=== PATIENT | female | born 1985 | race African-American/Black ===

== ENCOUNTER 2019-03-29 07:59 | Day surgery (SDC) | payer OTHER ==
[~2019-03-29] VITALS: Ht 165.1 cm; Wt 66.2 kg
[~2019-03-29 07:59] MED LIST: CEFAZOLIN SOD 1 GM/ ISO 50 ML PREMIX IV ONE
[2019-03-29] MEDS ORDERED: fentaNYL CITRATE/PF 100 MCG/2 ML AMP IVP PRN ×2 (08:15)
[2019-03-29] MEDS ORDERED: ONDANSETRON HCL 4 MG/2 ML VIAL IVP PRN ×2 (08:15→10:30)
[2019-03-29] MEDS ORDERED: KETOROLAC TROMETHAMINE 30 MG VIAL IVP PRN (08:15)
[2019-03-29] MEDS ORDERED: ONDANSETRON HCL 4 MG/2 ML VIAL ONE (10:10)
[2019-03-29] MEDS ORDERED: fentaNYL CITRATE/PF 100 MCG/2 ML AMP ONE (10:10)
[2019-03-29] MEDS ORDERED: NS IRRIG SOLN 1000 ML IR ONE (10:10)
[2019-03-29] MEDS ORDERED: PROPOFOL 200MG/ 20ML VIAL (DIPRIVAN) IV ONE (10:10)
[2019-03-29] MEDS ORDERED: SEVOFLURANE 15 MIN GAS INH ONE (10:10)
[2019-03-29] MEDS ORDERED: KETOROLAC TROMETHAMINE 30 MG VIAL ONE (10:10)
[2019-03-29] MEDS ORDERED: BUPIVACAINE /EPINEPHRINE/PF 0.25% 30 ML VIAL INJ ONE (10:10)
[2019-03-29] MEDS ORDERED: MIDAZOLAM HCL 5 MG/ML VIAL (VERSED) IV ONE (10:10)
[2019-03-29] MEDS ORDERED: BACITRACIN 1 GM OINT TP ONE (10:10)
[2019-03-29] MEDS ORDERED: LR 1,000 ML IV.SOLN IV ONE (10:10)
[2019-03-29] MEDS ORDERED: OXYCODONE/ACETAMINOPHEN 5-325 TABLET PO PRN (10:30)
[2019-03-29] MEDS ORDERED: HYDROcodone/ACETAMIN 5-325 MG TAB (NORCO/ VICODIN) PO PRN (10:30)
[2019-03-29 12:14] VITALS: BP_SYST 104
== END 2019-03-29 12:05 | disposition home or self-care (01) ==
LOC: SDS 07:59 → STU 08:00 → SDS 12:05
PROVIDERS: ATTEND Specialist
DX: N89.8 Other specified noninflammatory disorders of vagina (principal); N94.10 Unspecified dyspareunia; G89.29 Other chronic pain; Z98.890 Other specified postprocedural states; Z79.899 Other long term (current) drug therapy
CPT/HCPCS: 56700; 88304; J0690; J1885; J2250; J2405; J2704; J3010; J3490; J7120; G0378

== ENCOUNTER 2023-05-05 06:12 | Inpatient (IN) | payer OTHER ==
[~2023-05-05] VITALS: Ht 165.1 cm; Wt 72.6 kg
[2023-05-05] MEDS ORDERED: ONDANSETRON HCL 4 MG/2 ML VIAL ONE (07:30)
[2023-05-05] MEDS ORDERED: LIDOCAINE 2%, 20 ML MDV ONE (07:30)
[2023-05-05] MEDS ORDERED: SUGAMMADEX SODIUM 200 MG/2 ML VIAL IV ONE (07:30)
[2023-05-05] MEDS ORDERED: METOPROLOL TARTRATE 5 MG/5 ML VIAL ONE (07:30)
[2023-05-05] MEDS ORDERED: PROPOFOL 200MG/ 20ML VIAL (DIPRIVAN) IV ONE (07:30)
[2023-05-05] MEDS ORDERED: NORMAL SALINE 10 ML VIAL ONE (07:30)
[2023-05-05] MEDS ORDERED: NS IRRIG SOLN 1000 ML IR ONE (07:30)
[2023-05-05] MEDS ORDERED: KETOROLAC TROMETHAMINE 30 MG VIAL ONE (07:30)
[2023-05-05] MEDS ORDERED: MIDAZOLAM HCL 2 MG/2 ML VIAL (VERSED) ONE (07:30)
[2023-05-05] MEDS ORDERED: ROCURONIUM BROMIDE 10 MG/ML (ZEMURON) ONE (07:30)
[2023-05-05] MEDS ORDERED: LR 1,000 ML IV.SOLN IV ONE (07:30)
[2023-05-05] MEDS ORDERED: DESFLURANE 15 MIN GAS INH ONE (07:30)
[2023-05-05] MEDS ORDERED: BUPIVACAINE /PF 0.25% 30 ML VIAL INJ ONE (07:30)
[2023-05-05] MEDS ORDERED: MORPHINE SULFATE 10MG/10ML PF AMP ONE (07:30)
[2023-05-05] MEDS ORDERED: DEXAMETHASONE SOD PHOSPHATE 4 MG/ML VIAL ONE (07:30)
[2023-05-05] MEDS ORDERED: ceFAZolin SODIUM 2 GM VIAL ONE ×2 (07:30→13:11)
[2023-05-05] MEDS ORDERED: BUPIVACAINE /DEX PF 0.75% SPINAL 2 ML AMP INJ ONE (07:30)
[2023-05-05] MEDS ORDERED: ACETAMINOPHEN I.V. 1000 MG 100 ML IV ONE (08:13)
[2023-05-05] MEDS ORDERED: ONDANSETRON HCL 4 MG/2 ML VIAL IVP PRN ×2 (08:30→09:45)
[2023-05-05] MEDS ORDERED: HYDROmorphone 1 MG/ML INJ. CARTRIDGE IVP PRN ×2 (08:30)
[2023-05-05] MEDS ORDERED: LABETALOL 100 MG/ 20ML VIAL IVP PRN (08:30)
[2023-05-05] MEDS ORDERED: NALOXONE HCL 0.4 MG/ML AMP (NARCAN) IVP PRN (08:30)
[2023-05-05] MEDS ORDERED: MIDAZOLAM HCL 2 MG/2 ML VIAL (VERSED) IVP PRN (08:30)
[2023-05-05] MEDS ORDERED: LR 1,000 ML IV SCH (08:30)
[2023-05-05] MEDS ORDERED: METOCLOPRAMIDE HCL 10 MG/2 ML VIAL IVP PRN (08:30)
[2023-05-05] MEDS ORDERED: MEPERIDINE HCL/PF 25 MG/ML DISP.SYRIN IVP PRN (08:30)
[2023-05-05] MEDS ORDERED: D5LR 1,000 ML IV SCH (09:45)
[2023-05-05] MEDS ORDERED: OXYCODONE/ACETAMINOPHEN 5-325 TABLET PO PRN (09:45)
[2023-05-05] MEDS ORDERED: MEPERIDINE HCL/PF 25 MG/ML DISP.SYRIN ONE (10:05)
[2023-05-05] MEDS ORDERED: SERT100T PO (11:37)
[2023-05-05] MEDS ORDERED: SIMV-341 PO (11:37)
[2023-05-05] MEDS ORDERED: TRAZ300T2 PO (11:37)
[2023-05-05] MEDS ORDERED: LEVO2.5S8 PO (11:37)
[2023-05-05 11:40] VITALS: BP_SYST 113
[2023-05-05] MEDS: SIMETHICONE 80 MG TAB.CHEW PO SCH ×2 (13:00→21:48)
[2023-05-05] MEDS: DIPHENHYDRAMINE INJ 50 MG/ML VIAL IVP PRN ×2 (13:20→17:23)
[2023-05-05] MEDS: OXYCODONE/ACETAMINOPHEN *10*mg/325 mg TABLET PO PRN ×2 (13:21→18:59)
[2023-05-05] MEDS: ceFAZolin SODIUM 1 GM in D5W 100 ML IV SCH ×2 (15:00→21:50)
[2023-05-05] MEDS: KETOROLAC TROMETHAMINE 30 MG VIAL IVP SCH (19:00)
[2023-05-06] MEDS: KETOROLAC TROMETHAMINE 30 MG VIAL IVP SCH ×2 (00:52→06:30)
[2023-05-06] MEDS: DIPHENHYDRAMINE INJ 50 MG/ML VIAL IVP PRN (00:52)
[2023-05-06] MEDS ORDERED: TEMAZEPAM 15 MG CAPSULE PO ONE (01:15)
[2023-05-06] MEDS ORDERED: ceFAZolin SODIUM 2 GM VIAL ONE (05:51)
[2023-05-06] MEDS: ceFAZolin SODIUM 1 GM in D5W 100 ML IV SCH (06:30)
[2023-05-06 08:00] LABS: HEMATOCRIT 24.7 % (36-48); HEMOGLOBIN 8.3 g/dL (12.0-16.0); LYMPHOCYTES # (AUTO) 1.1 K/uL (1.0-5.5); MEAN CORPUSCULAR HEMOGLOBIN 27 pg (27-31); MEAN CORPUSCULAR HGB CONC 34 % (32-36); MEAN CORPUSCULAR VOLUME 81 fL (79.0-98.0); MONOCYTES # (AUTO) 0.7 K/uL (0.0-1.0); NEUTROPHILS # (AUTO) 11.4 K/uL (1.8-7.7); PLATELET COUNT (AUTO) 187 K/uL (130-430); RED BLOOD CELL COUNT(AUTO) 3.04 MIL/uL (4.2-6.2); RED CELL DISTRIBUTION WIDTH 14.4 % (9.0-15.0); WHITE BLOOD COUNT (AUTO) 13.2 K/uL (4.8-10.8)
[2023-05-06] MEDS ORDERED: IBUPROFEN 600 MG TABLET ONE (12:26)
[2023-05-06] MEDS: SIMETHICONE 80 MG TAB.CHEW PO SCH ×2 (17:40→20:18)
[2023-05-06] MEDS: IBUPROFEN 600 MG TABLET PO SCH (17:41)
[2023-05-06] MEDS ORDERED: TEMAZEPAM 15 MG CAPSULE PO PRN (21:15)
[2023-05-07] MEDS: IBUPROFEN 600 MG TABLET PO SCH ×3 (00:15→12:13)
[2023-05-07] MEDS: OXYCODONE/ACETAMINOPHEN *10*mg/325 mg TABLET PO PRN (08:47)
[2023-05-07] MEDS: SIMETHICONE 80 MG TAB.CHEW PO SCH ×2 (08:48→12:00)
== END 2023-05-07 15:05 | disposition home or self-care (01) | DRG 743 ==
LOC: SMU 06:12 → SDS 06:12 → UNDOFXSDCSVC 11:10 → UNDOFXSDCACCOM 11:10 → SPU 11:10 → SMU 11:10
PROVIDERS: ADMIT Specialist; ATTEND Specialist
PROC: 0DNW0ZZ Release Peritoneum, Open Approach (ICD-10-PCS; 2023-05-05)
PROC: 0UB90ZZ Excision of Uterus, Open Approach (ICD-10-PCS; principal; 2023-05-05 07:42)
DX: D25.1 Intramural leiomyoma of uterus (principal); L91.0 Hypertrophic scar
CPT/HCPCS: 36415; 85025; 86886; 86900; 86901; 87081; 88305; J0131; J1100; J1200; J1885; J2001; J2175; J2274; J2405; J2704; J3465; J3490; J7060; J7120